=== PATIENT | female | born 1990 ===

== ENCOUNTER → 2022-05-24 12:57 | Outpatient (REF) | payer BC, SELFPAY ==
--- NOTE | 2022-05-24 13:06 | CA_ITS ---
Transthoracic Echocardiogram Patient (Last, First, Middle): Wilma Sen Elisabeth Gender: Female Date of : 1990 Age: 32 Procedure Date: 05/24/2022 Procedure Type: Transthoracic Echocardiogram Location: OP Height: 165.1 cm Weight: 84.82 kg BSA: 1.92 m2 Heart Rate: bpm BP: 120 / 80 mmHg Lard Maker: TO Referring MD: Dolores Maldonado DO Symptoms: [id number] Study Quality: Fair ECG Rhythm: Sinus tachycardia Conclusions: - The left ventricular systolic function is normal. The calculated ejection fraction is 67% by biplane method. - No obvious valvular pathology seen on this study. Findings Left Ventricle Normal left ventricular cavity size. There is normal left ventricular wall thickness. The left ventricular systolic function is normal. The calculated ejection fraction is 67% by biplane method. There is no evidence of regional wall motion abnormalities. Diastolic function is normal for age. Right Ventricle Normal right ventricular cavity size and systolic function. Atria Both atria are normal in size. Aortic Valve There is a normal trileaflet aortic valve. There is no aortic valve stenosis. There is no aortic valve regurgitation. Mitral Valve The mitral valve appears normal. There is no mitral valve regurgitation. There is no mitral valve stenosis. Pulmonic Valve The pulmonic valve is likely normal. Tricuspid Valve Normal tricuspid valve structure. There is trace tricuspid valve regurgitation. There is no evidence of pulmonary hypertension. Great Vessels The asc aorta is normal in size. Venous The inferior vena cava is normal in size and collapses greater than 50% with inspiration. Pericardium/Pleural There is no evidence of pericardial effusion. Prior Study Comparison No prior study available for comparison. Recommendations, Care & Conclusions No obvious valvular pathology seen on this study. Measurements 2D Linear Measurements IVSd: 0.91 0.6-0.9/0.6-1.0 cm LVIDd: 3.76 3.9-5.3/4.2-5.9 cm LVIDd Index: 1.96 2.4-3.2/2.2-3.1 cm/m2 LVIDs: 2.48 2.0-3.6 cm LVPWd: 0.85 0.7-1.1 cm LA Diam: 2.60 2.7-3.8/3.0-4.0 cm LAIDs Index: 1.35 1.5-2.3 cm/m2 LV Mass: 119.93 67-162/88-224 g LV Mass Index: 62.46 43-95/49-115 g/m2 LVOT Diam: 2.00 3.0+(-)1.3 cm 2D Systolic Function EF 4C: 71.50 >55% EF 2C: 64.70 >55% EF BiP: 66.90 >55% Mitral Valve E'Lateral: 14.30 E'Medial: 11.20 Aortic Valve AoV Pk Rey: 1.21 AoV Mn Rey: 0.83 AoV VTI: 0.21 AoV Pk Grad: 6.00 Aov Mn Grad: 3.00 LOVELY Cont.VTI: 2.61 LVOT LVOT Pk Rey: 1.06 LVOT Mn Rey: 0.66 LVOT VTI: 0.17 LVOT Pk Grad: 4.00 LVOT Mn Grad: 2.00 LVOT Diam: 2.00 LVOT Area: 3.14 Diastolic Function E'Medial: 11.20 E' Laterial: 14.30 Right Ventricle TAPSE (mm): 22.30 TVS' Rey: 14.40 Tricuspid Valve TR Pk Rey: 2.43 TR Pk Grad: 24.00 RA Press: 3.00 RVSP: 27.00 Great Vessels Aorta Sinus of Valsalva: 2.75 2.0-3.5 cm Ao Asc: 2.50 2.1-3.4 cm Updated in Other Vendor System with Status of Final Noble Wallace MD electronically signed on 05/25/2022 1:27:38 PM with status of Final
== END ==
LOC: HO.CARD 12:57
PROVIDERS: Visit Provider Family Medicine
DX: R06.00 Dyspnea, unspecified (principal)
CPT/HCPCS: 93306